=== PATIENT | female | born 1950 | race Caucasian/White ===

== ENCOUNTER 2017-01-11 04:47 | Emergency (ER) | payer OTHER ==
[~2017-01-11] VITALS: Ht 154.9 cm; Wt 89.6 kg
[~2017-01-11 04:47] MED LIST: ASPIR-LOW81 MG PO; ASPIRIN81 M1 PO; AZOPT 1% O200 DROP/1 BOTH EYES; BENADRYL25 MG PO; CLONIDINE HCL0.1 MG PO; ESCITALOPRAM OX20 MG PO; GLUCOPHAGE500 MG PO; LOTREL 10/21 CAPSULE PO; PEPCID20 MG PO; PRAVASTATIN SOD80 MG PO; PREDNISONE20 MG PO; TRAVATAN Z5 ML BOTH EYES; TYLENOL REGULA325 MG PO; [UNRECOGNIZED DRUG - OTHER] PO
[2017-01-11] MEDS ORDERED: MEDROL DOSEPAK4 MG PO (06:35)
[2017-01-11] MEDS ORDERED: VALIUM2 MG PO (06:35)
[2017-01-11 06:36] LABS: HEMATOCRIT 41.1 % (36.0-46.0); MCH 29.9 PG (29.0-34.0); MCHC 32.8 G/DL (30.0-36.0); MCV 90.9 FL (83-99); MEAN PLAT.VOLUME 9.6 uM^3 (9.5-12.4); PLATELET COUNT 231 K/uL (156-360); RBC DIS.WIDTH-CV 12.8 % (11.8-14.6); RED BLOOD COUNT 4.52 M/uL (3.80-5.20); WHITE BLOOD COUNT 6.2 K/uL (4.1-10.2)
[2017-01-11 06:50] LABS: CHLORIDE 105 mEq/L (99-109); SODIUM 141 mEq/L (136-147)
[2017-01-11 06:51] LABS: GLUCOSE 123 mg/dL (70-99)
[2017-01-11 06:53] LABS: ANION GAP 10 MEQ/L (2-14)
[2017-01-11 06:55] LABS: GFR ESTIMATE (CALCULATED) > 59 mL/min/
[2017-01-11 06:56] LABS: UREA NITROGEN (BUN) 11 mg/dL (9-23)
[2017-01-11 07:04] LABS: TROP-I INTERPRETATION NEGATIVE; TROPONIN-I < 0.01 ng/mL (0.0-0.30)
[2017-01-11 07:57] VITALS: BP 160/78
== END 2017-01-11 07:58 | disposition home or self-care (01) ==
LOC: EME 04:47
PROVIDERS: Emergency Medicine
DX: S16.1XXA Strain of muscle, fascia and tendon at neck level, initial encounter (principal); R20.2 Paresthesia of skin; M25.522 Pain in left elbow; I10 Essential (primary) hypertension; K21.9 Gastro-esophageal reflux disease without esophagitis; J45.909 Unspecified asthma, uncomplicated; E11.9 Type 2 diabetes mellitus without complications; Z87.442 Personal history of urinary calculi; Z90.49 Acquired absence of other specified parts of digestive tract; Z79.84 Long term (current) use of oral hypoglycemic drugs; Z79.82 Long term (current) use of aspirin
CPT/HCPCS: 70450; 71020; 72125; 80048; 84484; 85027; 99281; 99284; J7512

== ENCOUNTER 2017-09-10 11:47 | Emergency (ER) | payer OTHER ==
[~2017-09-10] VITALS: Ht 154.9 cm; Wt 90.7 kg
[~2017-09-10 11:47] MED LIST changes: +MEDROL DOSEPAK4 MG PO; +VALIUM2 MG PO
[2017-09-10 12:49] LABS: HEMATOCRIT 42.5 % (36.0-46.0); MCH 30.5 PG (29.0-34.0); MCHC 32.9 G/DL (30.0-36.0); MCV 92.6 FL (83-99); PLATELET COUNT 226 K/uL (156-360); RBC DIS.WIDTH-SD 44.2 % (39-53); RED BLOOD COUNT 4.59 M/uL (3.80-5.20); WHITE BLOOD COUNT 6.5 K/uL (4.1-10.2)
[2017-09-10 13:00] LABS: CHLORIDE 106 mEq/L (99-109); POTASSIUM 4.5 mEq/L (3.7-5.4); SODIUM 142 mEq/L (136-147)
[2017-09-10 13:02] LABS: GLUCOSE 119 mg/dL (70-99)
[2017-09-10 13:06] LABS: CREATININE 0.8 mg/dL (0.6-1.3); GFR ESTIMATE (CALCULATED) > 59 mL/min/
[2017-09-10 13:07] LABS: UREA NITROGEN (BUN) 12 mg/dL (9-23)
[2017-09-10 13:18] LABS: TROP-I INTERPRETATION NEGATIVE; TROPONIN-I < 0.01 ng/mL (0.0-0.30)
[2017-09-10] MEDS ORDERED: ZOFRAN4 MG PO (16:35)
[2017-09-10 16:59] VITALS: BP 138/63
== END 2017-09-10 17:00 | disposition home or self-care (01) ==
LOC: EME 11:47
PROVIDERS: Nurse Practitioner Family
DX: R10.84 Generalized abdominal pain (principal); R11.0 Nausea; Z87.442 Personal history of urinary calculi; K21.9 Gastro-esophageal reflux disease without esophagitis; E11.9 Type 2 diabetes mellitus without complications; Z79.84 Long term (current) use of oral hypoglycemic drugs; I10 Essential (primary) hypertension; J45.909 Unspecified asthma, uncomplicated; F32.9 Major depressive disorder, single episode, unspecified; F41.9 Anxiety disorder, unspecified; Z90.49 Acquired absence of other specified parts of digestive tract; Z88.5 Allergy status to narcotic agent
CPT/HCPCS: 71046; 74176; 80048; 84484; 85027; 87502; 93005; 99281; 99285; J1200; J2405; J3010; J7030